=== PATIENT | female | born 1995 | race Caucasian/White ===

== ENCOUNTER 2018-09-30 16:37 | Observation (INO) ==
[2018-09-30 17:30] LABS: Hematocrit 31.7 % (37.0-47.0); Mean Cell Volume 87.8 fl (78-100); Mean Corpuscular Hemoglobin 30.5 pg (27-31); Mean Corpuscular Hgb Conc 34.7 g/dl (32-36); Mean Platelet Volume 10.9 fl (8-12.5); Neutrophil # 11.9 K/mm3 (1.3-6.0); Neutrophil % 81.7 % (42-75.0); Platelet Count 227 K/mm3 (150-450); Red Blood Count 3.61 M/mm3 (4.2-5.4); Red Cell Distribution Width 13.5 % (11.5-14.0); White Blood Count 14.6 K/mm3 (4.0-10.5)
[2018-09-30 17:45] LABS: Albumin * 2.5 gm/dl (3.4-5.0); Anion Gap 12.2 mmol/L (6.8-13.8); BUN/Creatinine Ratio 5.6 (9.0-21.6); Bilirubin, Total 0.2 mg/dL (0.0-1.1); Calcium * 8.1 mg/dL (7.9-10.9); Carbon Dioxide 24.7 mmol/L (24-32.6); Potassium 2.9 mmol/L (3.4-4.6); Total Protein 5.7 gm/dL (6.2-8.2)
[2018-09-30 18:18] LABS: Cocaine Ur Negative (NEGATIVE); Urine Barbiturate Negative (NEGATIVE); Urine Benzodiazepines Negative (NEGATIVE); Urine Opiates Negative (NEGATIVE); Urine PCP Negative (NEGATIVE); Urine THC Negative (NEGATIVE)
[2018-10-01] MEDS: hydrOXYzine PAMOATE 25 MG CAPSULE PO PRN ×3 (11:48→20:40)
--- NOTE | 2018-10-01 12:31 | PN ---
Subjective - Date and Time Seen Date: 10/01/18 Time: 12:28 Subjective Narrative: Patient denies headache, visual changes, or epigastric pain. Admits to good movement and no contractions. Objective - Review of Systems Generalized/Overall Review: Reports: No Symptoms Reported EENTM: Reports: No Symptoms Reported Respiratory: Reports: No Symptoms Reported Cardiac: Reports: No Symptoms Reported Abdominal: Reports: No Symptoms Reported Genitourinary Symptoms: Reports: No Symptoms Reported Musculoskeletal Complaints: Reports: No Symptoms Reported Neurological: Reports: Anxiety Skin: Reports: No Symptoms Reported Endocrine: Reports: No Symptoms Reported - Vitals Vitals: Last Vital Signs Temp 37.1 C 10/01/18 11:20 Pulse 94 10/01/18 11:20 Resp 20 10/01/18 11:20 BP 147/80 H 10/01/18 11:20 Pulse Ox 97 10/01/18 11:20 - Abnormal Lab Findings Abnormal Lab Findings: Abnormal Lab Results 09/30/18 09/30/18 Range/Units 17:20 17:25 WBC 14.6 H (4.0-10.5) K/mm3 RBC 3.61 L (4.2-5.4) M/mm3 Hgb 11.0 L (12.5-16.0) gm/dL Hct 31.7 L (37.0-47.0) % Immature Gran % (Auto) 1.10 H (0.001-0.429) % Immature Gran # (Auto) 0.16 H (0.000-0.0310) K/mm3 Neutrophils % 81.7 H (42-75.0) % Lymphocytes % 12.5 L (20-51) % Neutrophils # 11.9 H (1.3-6.0) K/mm3 Potassium 2.9 L (3.4-4.6) mmol/L Est GFR (Non-Af Amer) 151 H (60-130) mL/min BUN/Creatinine Ratio 5.6 L (9.0-21.6) ALT 16 L (19-67) U/L Alkaline Phosphatase 173 H (50-170) U/L Total Protein 5.7 L (6.2-8.2) gm/dL Albumin 2.5 L (3.4-5.0) gm/dl - Exam Exam Narrative: NST reactive. Constitutional: Present: Alert, Oriented x3, Cooperative, No distress ENT Exam: Present: hearing grossly normal Respiratory: Present: no respiratory distress Cardiovascular/Chest: Present: regular rate, rhythm Abdomen: Present: soft, nontender, other - gravid Extremity: Present: non-tender, no pedal edema, no calf tenderness Skin Exam: Present: normal color, warm/dry, no cyanosis Neurologic: Present: alert, normal mood/affect, oriented x 3, other - DTR 1/4 b/l, no clonus Appearance: Present: appropriate appearance, appropriate insight Eye contact: Present: cooperative, good eye contact, normal speech Thoughts: Present: normal thought pattern Assessment/Plan - Problems/Diagnosis (1) Preeclampsia Problem: Acute Qualifiers: Trimester: third trimester Qualified Code(s): O14.93 - Unspecified pre- eclampsia, third trimester Narrative: No signs or symptoms of severe features since admission to hospital. We'll continue to monitor blood pressures and patient's condition throughout the day. Possible discharge to home with frequent office visits versus continuing hospitalization until term.
--- NOTE | 2018-10-01 16:07 | HP ---
Chief Complaint - Chief Complaint Date of Service: 10/01/18 Time of Service: 15:22 - late note, seen last pm Chief Complaint: preeclampsia with severe features in office History of Present Illness: 23 yo at 35 3/7 wks on day of admission last pm from office for preeclampsia with severe features by blood pressure alone. Patient came to office for 2nd betamethasone shot and had blood pressures of 157/91, 164/93, and 179/92. She did not complain of headache, visual changes, or epigastric pain (though she has had all the above intermittently throughout the week). She was sent to L&D for further evaluation/tx with possible transfer to [facility]. Upon arrival her blood pressures were only elevated in the mild range and most WNL. She was therefore admitted for 23h observation. She received a course of steroids on 09/29 and 09/30. This complicated by anemia, subchorionic hemorrhage (1st trimester), anxiety, migraines, THC use, smoker, and preeclampsia (dx'd 09/28/18). 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 Onset Date: 2014 headaches, migraines, no treatment Anxiety Surgical History: Surgical History (Last Reviewed 10/01/18 @ 15:58 by Saúl Mansfield DO) History of myringotomy x3 History of arthroplasty of right knee Onset Date: 2012 genetic condition Family History: Family History (Last Reviewed 10/01/18 @ 15:58 by Saúl Mansfield DO) Aunt Cancer breast cancer and ovarian cancer Father S/P CABG x 3 Grandfather Heart disease Grandfather Cancer Colon Grandmother Parkinsons disease Diabetes Grandmother Heart disease Mother COPD (chronic obstructive pulmonary disease) Myocardial infarction Arthritis H/O spontaneous , not currently x8 Social History: Preferred Language Iranian Do you have any orthodox or No cultural preference? (Last Updated 09/29/18 @ 17:53 by Saúl Mansfield DO) No Social History Section defined Review Of Systems (GEN) - Review of Systems Generalized/Overall Review: Present: No Symptoms Reported EENTM: Present: No Symptoms Reported Respiratory: Present: No Symptoms Reported Cardiac: Present: No Symptoms Reported Abdominal: Present: No Symptoms Reported Genitourinary: Present: No Symptoms Reported Musculoskeletal: Present: No Symptoms Reported Neurological: Present: Anxiety Skin: Present: No Symptoms Reported Endocrine: Present: No Symptoms Reported Immunizations: IMMUNIZATION HX Immunizations Up to Date Yes History of Influenza Vaccine No Hx Pneumococcal Vaccination No Allergies/Adverse Reactions: Allergies Allergy/AdvReac Type Severity Reaction Status Date / Time latex Allergy Itching, Verified 09/30/18 16:58 burning tramadol Allergy Itching, Verified 09/30/18 16:58 nausea, vomiting Home Medications: HOME MEDICATIONS Vits96/Iron Fum/Folic [ S] 1 tab PO DAILY 09/30/18 [Last Taken 09/29/18 11:00] hydrALAZINE HCL [Hydralazine HCl] 25 mg PO Q4H PRN 09/30/18 [Last Taken Unknown] Exam - Exam Vital Signs: Vital Signs - Last Taken Temp 37.1 C 10/01/18 11:20 Pulse 94 10/01/18 11:20 Resp 20 10/01/18 11:20 BP 147/80 H 10/01/18 11:20 Pulse Ox 97 10/01/18 11:20 Constitutional: Present: Alert, Oriented x3, Cooperative, No distress ENT Exam: Present: hearing grossly normal Neck: Absent: thyromegaly Back Exam: Present: no CVA tenderness Breasts: Present: Exam deferred Respiratory: Present: lungs clear, no respiratory distress Cardiovascular/Chest: Present: normal peripheral pulses, regular rate, rhythm, no edema Abdomen: Present: soft, nontender, no rebound tenderness, other - gravid /Rectal: Present: Exam deferred Extremity: Present: no pedal edema, no calf tenderness Skin Exam: Present: normal color, warm/dry, no cyanosis Lymphatic: Present: no adenopathy Neurologic: Present: normal mood/affect, oriented x 3 Appearance: Present: appropriate appearance, appropriate insight Eye contact: Present: cooperative, good eye contact Thoughts: Present: normal mood /affect Diagnostic Studies: Abnormal Lab Results 09/30/18 09/30/18 Range/Units 17:20 17:25 WBC 14.6 H (4.0-10.5) K/mm3 RBC 3.61 L (4.2-5.4) M/mm3 Hgb 11.0 L (12.5-16.0) gm/dL Hct 31.7 L (37.0-47.0) % Immature Gran % (Auto) 1.10 H (0.001-0.429) % Immature Gran # (Auto) 0.16 H (0.000-0.0310) K/mm3 Neutrophils % 81.7 H (42-75.0) % Lymphocytes % 12.5 L (20-51) % Neutrophils # 11.9 H (1.3-6.0) K/mm3 Potassium 2.9 L (3.4-4.6) mmol/L Est GFR (Non-Af Amer) 151 H (60-130) mL/min BUN/Creatinine Ratio 5.6 L (9.0-21.6) ALT 16 L (19-67) U/L Alkaline Phosphatase 173 H (50-170) U/L Total Protein 5.7 L (6.2-8.2) gm/dL Albumin 2.5 L (3.4-5.0) gm/dl Laboratory Results WBC 14.6 K/mm3 (4.0-10.5) H 09/30/18 17:25 RBC 3.61 M/mm3 (4.2-5.4) L 09/30/18 17:25 Hgb 11.0 gm/dL (12.5-16.0) L 09/30/18 17:25 Hct 31.7 % (37.0-47.0) L 09/30/18 17:25 MCV 87.8 fl (78-100) 09/30/18 17:25 MCH 30.5 pg (27-31) 09/30/18 17:25 MCHC 34.7 g/dl (32-36) 09/30/18 17:25 RDW 13.5 % (11.5-14.0) 09/30/18 17:25 Plt Count 227 K/mm3 (150-450) 09/30/18 17:25 MPV 10.9 fl (8-12.5) 09/30/18 17:25 Immature Gran % (Auto) 1.10 % (0.001-0.429) H 09/30/18 17:25 Immature Gran # (Auto) 0.16 K/mm3 (0.000-0.0310) H 09/30/18 17:25 Neutrophils % 81.7 % (42-75.0) H 09/30/18 17:25 Lymphocytes % 12.5 % (20-51) L 09/30/18 17:25 Monocytes % 4.1 % (0.0-9) 09/30/18 17:25 Eosinophils % 0.5 % (0.0-3.0) 09/30/18 17:25 Basophils % 0.1 % (0.0-1.0) 09/30/18 17:25 Nucleated RBC % 0.0 k/mm3 (0-1) 09/30/18 17:25 Neutrophils # 11.9 K/mm3 (1.3-6.0) H 09/30/18 17:25 Lymphocytes # 1.83 k/mm3 (1.5-3.5) 09/30/18 17:25 Monocytes # 0.6 k/mm3 (0.0-1.0) 09/30/18 17:25 Eosinophils # 0.1 k/mm3 (0.0-0.7) 09/30/18 17:25 Absolute Basophils 0.0 k/mm3 (0.0-0.1) 09/30/18 17:25 Sodium 138 mmol/L (132-142) 09/30/18 17:20 Plasma Sodium 138 mmol/L (130-142) 09/30/18 17:20 Potassium 2.9 mmol/L (3.4-4.6) L 09/30/18 17:20 Chloride 104 mmol/L (97-106) 09/30/18 17:20 Carbon Dioxide 24.7 mmol/L (24-32.6) 09/30/18 17:20 Anion Gap 12.2 mmol/L (6.8-13.8) 09/30/18 17:20 BUN 3 mg/dL (3-23) 09/30/18 17:20 Creatinine 0.54 mg/dL (0.4-1.4) 09/30/18 17:20 Est GFR (Non-Af Amer) 151 mL/min (60-130) H 09/30/18 17:20 BUN/Creatinine Ratio 5.6 (9.0-21.6) L 09/30/18 17:20 Random Glucose 104 mg/dL (70-110) 09/30/18 17:20 Calcium 8.1 mg/dL (7.9-10.9) 09/30/18 17:20 Calcium Adj for Albumin 9.0 mg/dL (8.4-10.2) 09/30/18 17:20 Total Bilirubin 0.2 mg/dL (0.0-1.1) 09/30/18 17:20 AST 14 U/L (0-48) 09/30/18 17:20 ALT 16 U/L (19-67) L 09/30/18 17:20 Alkaline Phosphatase 173 U/L (50-170) H 09/30/18 17:20 Total Protein 5.7 gm/dL (6.2-8.2) L 09/30/18 17:20 Albumin 2.5 gm/dl (3.4-5.0) L 09/30/18 17:20 Urine Opiates Screen Negative (NEGATIVE) 09/30/18 17:54 Barbiturate Screen Negative (NEGATIVE) 09/30/18 17:54 Ur Phencyclidine Scrn Negative (NEGATIVE) 09/30/18 17:54 Urine Amphetamine Negative (NEGATIVE) 09/30/18 17:54 U Benzodiazepines Scrn Negative (NEGATIVE) 09/30/18 17:54 Urine Cocaine Screen Negative (NEGATIVE) 09/30/18 17:54 Urine Marijuana (THC) Negative (NEGATIVE) 09/30/18 17:54 Assessment/Plan - Assessment/Plan (1) Preeclampsia Assessment: Admit for prolonged monitoring for return of severe features. If remains stable throughout today and tonight, will consider discharge to home with close outpatient follow-up. Plan on delivery at 37wks unless severe features develop before then. 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
[2018-10-02] MEDS: hydrOXYzine PAMOATE 25 MG CAPSULE PO PRN ×2 (02:38→07:46)
[2018-10-02 07:12] VITALS: BP 134/65
--- NOTE | 2018-10-02 09:03 | PN ---
Subjective - Date and Time Seen Date: 10/02/18 Time: 08:57 Subjective Narrative: Patient denies headache, visual changes, or epigastric pain. Her anxiety has been controlled with Vistaril PRN. Objective - Review of Systems Generalized/Overall Review: Reports: No Symptoms Reported EENTM: Reports: No Symptoms Reported Respiratory: Reports: No Symptoms Reported Cardiac: Reports: No Symptoms Reported Abdominal: Reports: No Symptoms Reported Genitourinary Symptoms: Reports: No Symptoms Reported Musculoskeletal Complaints: Reports: No Symptoms Reported Neurological: Reports: Anxiety - controlled Skin: Reports: No Symptoms Reported Endocrine: Reports: No Symptoms Reported - Vitals Vitals: Last Vital Signs Temp 37.1 C 10/02/18 06:45 Pulse 77 10/02/18 06:45 Resp 18 10/02/18 06:45 BP 134/65 10/02/18 06:45 Pulse Ox 98 10/02/18 06:45 NST reactive. - Exam Constitutional: Present: Alert, Oriented x3, Cooperative, No distress ENT Exam: Present: hearing grossly normal Breasts: Present: Exam deferred Respiratory: Present: lungs clear, no respiratory distress Cardiovascular/Chest: Present: normal peripheral pulses, regular rate, rhythm, no edema Abdomen: Present: soft, nontender, no rebound tenderness, other - gravid /Rectal: Present: Exam deferred Extremity: Present: non-tender, no pedal edema, no calf tenderness Skin Exam: Present: normal color, warm/dry, no cyanosis Neurologic: Present: alert, normal mood/affect, oriented x 3, other - DTR 1/4, no clonus Appearance: Present: appropriate appearance, appropriate insight Eye contact: Present: cooperative, good eye contact Thoughts: Present: normal thought pattern Assessment/Plan - Problems/Diagnosis (1) Preeclampsia Problem: Acute Qualifiers: Trimester: third trimester Qualified Code(s): O14.93 - Unspecified pre- eclampsia, third trimester Narrative: Reluctantly discharging patient on with close outpatient observation. Patient instructed to call for any signs or symptoms of severe preeclampsia. Patient to remain on bed rest and not drive. Patient has appointment for NST, f/u growth ultrasound, and lab work on Saturday. 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
== END 2018-10-02 09:15 | disposition home or self-care (01) | DRG 833 ==
LOC: INTOOBSV 16:37 → OB 16:37
PROVIDERS: ADMIT Obstetrics & Gynecology; ATTEND Obstetrics & Gynecology
CPT/HCPCS: 36415; 59025; 80053; 80307; 85025; G0378; G0479

== ENCOUNTER 2018-10-02 14:34 | Observation (INO) ==
[2018-10-02] MEDS ORDERED: RINGER'S SOLUTION,LACTATED 1,000 ML IV PRN ×2 (15:00→15:02)
[2018-10-02 15:25] LABS: Hematocrit 31.9 % (37.0-47.0); Hemoglobin 11.2 gm/dL (12.5-16.0); Mean Cell Volume 87.6 fl (78-100); Mean Corpuscular Hemoglobin 30.8 pg (27-31); Mean Corpuscular Hgb Conc 35.1 g/dl (32-36); Mean Platelet Volume 11.1 fl (8-12.5); Neutrophil % 72.8 % (42-75.0); Platelet Count 243 K/mm3 (150-450); Red Blood Count 3.64 M/mm3 (4.2-5.4); Red Cell Distribution Width 13.5 % (11.5-14.0); White Blood Count 15.2 K/mm3 (4.0-10.5)
[2018-10-02 15:32] LABS: Albumin * 2.4 gm/dl (3.4-5.0); Anion Gap 13.2 mmol/L (6.8-13.8); BUN/Creatinine Ratio 7.4 (9.0-21.6); Bilirubin, Total 0.3 mg/dL (0.0-1.1); Ca. Corrected For Albumin 9.1 mg/dL (8.4-10.2); Calcium * 8.1 mg/dL (7.9-10.9); Carbon Dioxide 24.8 mmol/L (24-32.6); Total Protein 5.6 gm/dL (6.2-8.2)
[2018-10-02] MEDS ORDERED: CALCIUM GLUCONATE 4.65 MEQ/10 ML VIAL IV PRN (15:38)
[2018-10-02] MEDS ORDERED: MAGNESIUM SULFATE IN WATER 50 ML, MAGNESIUM SULFATE IN WATER 50 ML IV ONE ×2 (15:38)
[2018-10-02] MEDS ORDERED: LABETALOL HCL 5 MG/ML VIAL IV ONE ×2 (15:41→15:51)
[2018-10-02] MEDS ORDERED: LABETALOL HCL 100 MG TABLET PO SCH (15:41)
[2018-10-02] MEDS ORDERED: MAGNESIUM SULFATE IN WATER 1,000 ML IV SCH (15:45)
[2018-10-02 15:52] VITALS: BP 189/86
--- NOTE | 2018-10-02 16:30 | HP ---
Chief Complaint - Chief Complaint Date of Service: 10/02/18 Time of Service: 16:13 Chief Complaint: Contractions History of Present Illness: 23 yo at 35 5/7 wks diagnosed with preeclampsia and recently discharged this am presents to office this afternoon complaining of contracitons of increased intensity that started around 1230 and become severe around 1530. She complains of headache since onset of contractions, but denies epigastric pain, visual changes, or increased swelling. 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 Onset Date: 2014 headaches, migraines, no treatment Anxiety Surgical History: Surgical History (Last Reviewed 10/02/18 @ 16:16 by Saúl Mansfield DO) History of myringotomy x3 History of arthroplasty of right knee Onset Date: 2012 genetic condition Family History: Family History (Last Reviewed 10/02/18 @ 16:17 by Saúl Mansfield DO) Aunt Cancer breast cancer and ovarian cancer Father S/P CABG x 3 Grandfather Heart disease Grandfather Cancer Colon Grandmother Parkinsons disease Diabetes Grandmother Heart disease Mother COPD (chronic obstructive pulmonary disease) Myocardial infarction Arthritis H/O spontaneous , not currently x8 Social History: Preferred Language Kyrgyz (Last Updated 09/29/18 @ 17:53 by Saúl Mansfield DO) No Social History Section defined Review Of Systems (GEN) - Review of Systems Generalized/Overall Review: Present: No Symptoms Reported EENTM: Present: No Symptoms Reported Respiratory: Present: No Symptoms Reported Cardiac: Present: No Symptoms Reported Abdominal: Present: Other - contractions Genitourinary: Present: No Symptoms Reported Musculoskeletal: Present: No Symptoms Reported Neurological: Present: Headache, Anxiety Skin: Present: No Symptoms Reported Endocrine: Present: No Symptoms Reported Immunizations: IMMUNIZATION HX Immunizations Up to Date Yes History of Influenza Vaccine No Hx Pneumococcal Vaccination No Allergies/Adverse Reactions: Allergies Allergy/AdvReac Type Severity Reaction Status Date / Time latex Allergy Itching, Verified 10/02/18 14:44 burning tramadol Allergy Itching, Verified 10/02/18 14:44 nausea, vomiting Home Medications: HOME MEDICATIONS Vits96/Iron Fum/Folic [ S] 1 tab PO DAILY 09/30/18 [Last Taken 09/29/18 11:00] hydrALAZINE HCL [Hydralazine HCl] 25 mg PO Q4H PRN 09/30/18 [Last Taken Unknown] Escitalopram Oxalate [Lexapro] 10 mg PO DAILY #30 tab 10/02/18 [Last Taken Unknown] Ferrous Sulfate 325 mg PO DAILY #60 tablet 10/02/18 [Last Taken Unknown] Exam - Exam Vital Signs: Vital Signs - Last Taken Temp 37.3 C 10/02/18 15:00 Pulse 92 10/02/18 15:53 Resp 20 10/02/18 15:00 BP 189/86 H 10/02/18 15:53 Pulse Ox 98 10/02/18 15:00 Constitutional: Present: Alert, Oriented x3, Cooperative, Mild distress ENT Exam: Present: hearing grossly normal Cardiovascular/Chest: Present: normal peripheral pulses, regular rate, rhythm Abdomen: Present: soft, nontender, no rebound tenderness, other - gravid. Absent: guarding Extremity: Present: non-tender, no pedal edema, no calf tenderness Skin Exam: Present: normal color, warm/dry, no cyanosis Lymphatic: Present: no adenopathy Neurologic: Present: other - anxious, agitated Appearance: Present: appropriate appearance, appropriate insight Eye contact: Present: cooperative, good eye contact Thoughts: Present: other - confused Diagnostic Studies: Abnormal Lab Results 10/02/18 10/02/18 Range/Units 15:00 15:15 WBC 15.2 H (4.0-10.5) K/mm3 RBC 3.64 L (4.2-5.4) M/mm3 Hgb 11.2 L (12.5-16.0) gm/dL Hct 31.9 L (37.0-47.0) % Immature Gran % (Auto) 3.80 H (0.001-0.429) % Immature Gran # (Auto) 0.57 H (0.000-0.0310) K/mm3 Lymphocytes % 16.9 L (20-51) % Neutrophils # 11.0 H (1.3-6.0) K/mm3 Sodium 143 H (132-142) mmol/L Plasma Sodium 143 H (130-142) mmol/L Potassium 3.0 L (3.4-4.6) mmol/L Chloride 108 H (97-106) mmol/L Est GFR (Non-Af Amer) 151 H (60-130) mL/min BUN/Creatinine Ratio 7.4 L (9.0-21.6) AST 79 H (0-48) U/L Total Protein 5.6 L (6.2-8.2) gm/dL Albumin 2.4 L (3.4-5.0) gm/dl Laboratory Results WBC 15.2 K/mm3 (4.0-10.5) H 10/02/18 15:15 RBC 3.64 M/mm3 (4.2-5.4) L 10/02/18 15:15 Hgb 11.2 gm/dL (12.5-16.0) L 10/02/18 15:15 Hct 31.9 % (37.0-47.0) L 10/02/18 15:15 MCV 87.6 fl (78-100) 10/02/18 15:15 MCH 30.8 pg (27-31) 10/02/18 15:15 MCHC 35.1 g/dl (32-36) 10/02/18 15:15 RDW 13.5 % (11.5-14.0) 10/02/18 15:15 Plt Count 243 K/mm3 (150-450) 10/02/18 15:15 MPV 11.1 fl (8-12.5) 10/02/18 15:15 Immature Gran % (Auto) 3.80 % (0.001-0.429) H 10/02/18 15:15 Immature Gran # (Auto) 0.57 K/mm3 (0.000-0.0310) H 10/02/18 15:15 Neutrophils % 72.8 % (42-75.0) 10/02/18 15:15 Lymphocytes % 16.9 % (20-51) L 10/02/18 15:15 Monocytes % 5.9 % (0.0-9) 10/02/18 15:15 Eosinophils % 0.3 % (0.0-3.0) 10/02/18 15:15 Basophils % 0.3 % (0.0-1.0) 10/02/18 15:15 Nucleated RBC % 0.0 k/mm3 (0-1) 10/02/18 15:15 Neutrophils # 11.0 K/mm3 (1.3-6.0) H 10/02/18 15:15 Lymphocytes # 2.57 k/mm3 (1.5-3.5) 10/02/18 15:15 Monocytes # 0.9 k/mm3 (0.0-1.0) 10/02/18 15:15 Eosinophils # 0.0 k/mm3 (0.0-0.7) 10/02/18 15:15 Absolute Basophils 0.1 k/mm3 (0.0-0.1) 10/02/18 15:15 Sodium 143 mmol/L (132-142) H 10/02/18 15:00 Plasma Sodium 143 mmol/L (130-142) H 10/02/18 15:00 Potassium 3.0 mmol/L (3.4-4.6) L 10/02/18 15:00 Chloride 108 mmol/L (97-106) H 10/02/18 15:00 Carbon Dioxide 24.8 mmol/L (24-32.6) 10/02/18 15:00 Anion Gap 13.2 mmol/L (6.8-13.8) 10/02/18 15:00 BUN 4 mg/dL (3-23) 10/02/18 15:00 Creatinine 0.54 mg/dL (0.4-1.4) 10/02/18 15:00 Est GFR (Non-Af Amer) 151 mL/min (60-130) H 10/02/18 15:00 BUN/Creatinine Ratio 7.4 (9.0-21.6) L 10/02/18 15:00 Random Glucose 89 mg/dL (70-110) 10/02/18 15:00 Calcium 8.1 mg/dL (7.9-10.9) 10/02/18 15:00 Calcium Adj for Albumin 9.1 mg/dL (8.4-10.2) 10/02/18 15:00 Total Bilirubin 0.3 mg/dL (0.0-1.1) 10/02/18 15:00 AST 79 U/L (0-48) H 10/02/18 15:00 ALT 41 U/L (19-67) 10/02/18 15:00 Alkaline Phosphatase 159 U/L (50-170) 10/02/18 15:00 Total Protein 5.6 gm/dL (6.2-8.2) L 10/02/18 15:00 Albumin 2.4 gm/dl (3.4-5.0) L 10/02/18 15:00 Assessment/Plan - Assessment/Plan (1) Anxiety Problem: Chronic (2) Anemia affecting in third trimester Problem: Acute (3) Smoker Problem: Resolved (4) 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 Admit, start on magnesium sulfate, give labetalol for elevated BPs and transfer to [facility]. Problem: Acute Qualifiers: Trimester: third trimester (6) labor in third trimester Problem: Acute Qualifiers: labor delivery status: without delivery Qualified Code(s): O60.03 - labor without delivery, third trimester
== END 2018-10-02 17:11 | disposition short-term general hospital (02) ==
LOC: OBCLINIC 14:34 → INTOOBSV 15:54 → OB 15:54
PROVIDERS: ADMIT Obstetrics & Gynecology; ATTEND Obstetrics & Gynecology
DX: O60.03 Preterm labor without delivery, third trimester; D64.9 Anemia, unspecified; Z3A.36 36 weeks gestation of pregnancy; F41.9 Anxiety disorder, unspecified; O99.013 Anemia complicating pregnancy, third trimester; O14.13 Severe pre-eclampsia, third trimester
CPT/HCPCS: 36415; 59025; 80053; 85025; 96374; G0378

== ENCOUNTER 2020-04-12 10:55 | Observation (INO) ==
[2020-04-12] MEDS ORDERED: DEXTROSE 5%-LACTATED RINGERS 1,000 ML IV PRN (11:26)
[2020-04-12 11:29] LABS: Urine Bilirubin Negative (NEGATIVE); Urine Blood 25 /ul (NEGATIVE); Urine Ketone Negative (NEGATIVE); Urine Nitrite Negative (NEGATIVE); Urine Protein Negative (NEGATIVE); Urine Specific Gravity 1.015 SP.GR. (1.005-1.010); Urine Urobilinogen Normal (NORMAL); Urine pH 7.5 pH (5.0-7.0)
[2020-04-12] MEDS: ONDANSETRON HCL/PF 2 MG/ML VIAL IV PRN ×2 (11:30→18:25)
[2020-04-12 11:44] LABS: Urine Appearance Clear (CLEAR); Urine Color Yellow
[2020-04-12 11:45] LABS: Urine Amorphous Sediment Few - 1+ (NONE-FEW); Urine Bacteria 1+; Urine WBC 0-5 /hpf (0-5)
[2020-04-12 11:46] LABS: Urine Mucus TRACE
[2020-04-12] MEDS: HYDROmorphone HCL 1 MG/ML DISP.SYRIN IV PRN ×2 (12:09→15:13)
[2020-04-12] MEDS ORDERED: HYDROmorphone HCL 1 MG/ML DISP.SYRIN IV PRN ×2 (12:28→17:02)
[2020-04-12] MEDS ORDERED: RINGER'S SOLUTION,LACTATED 1,000 ML IV PRN ×2 (12:35→16:54)
[2020-04-12] MEDS: TAMSULOSIN HCL 0.4 MG CAP.SR.24H PO SCH (13:02)
[2020-04-12] MEDS ORDERED: oxyCODONE HCL/ACETAMINOPHEN 1 TAB TABLET PO PRN ×3 (13:28→17:02)
[2020-04-12] MEDS ORDERED: hydrOXYzine PAMOATE 50 MG CAPSULE PO ONE (16:50)
[2020-04-12] MEDS ORDERED: oxyCODONE HCL/ACETAMINOPHEN 1 TAB TABLET PO ONE (16:50)
[2020-04-12] MEDS ORDERED: hydrOXYzine PAMOATE 25 MG CAPSULE PO ONE (17:00)
[2020-04-12] MEDS ORDERED: hydrOXYzine PAMOATE 25 MG CAPSULE PO PRN (17:05)
--- NOTE | 2020-04-12 17:47 | HP ---
Chief Complaint - Chief Complaint Date of Service: 04/12/20 Time of Service: 17:28 Chief Complaint: lower back/abd pain History of Present Illness: 25 yo at 30 2/7 weeks presents to L&D complaining of severe left sided back/abdominal pain that started around 0900 this am. Pain is described as sharp/aching 9/10. Associated nausea started apprdoximately 30 min after pain began. Patient admits to increased vaginal/rectal pressure. Denies vaginal bleeding/discharge, fever, chills, or decreased movement. This pregancy complicated by anxiety, anemia, migraines, smoker, h/o severe preeclampsia with iatrogenic PTD at 35 wks, threatened PTL, and now kidney stones. Rh positive Rubella immune GBS cx pending Medical History (Last Reviewed 04/12/20 @ 17:35 by Saúl Mansfield DO) Anemia (Acute) Onset Date: 03/10/20 w/ Threatened spontaneous (Acute) History of delivery (Chronic) iatrogenic - 35wks, severe preeclampsia. History of pre-eclampsia (Chronic) Anemia Onset Date: 07/31/18 w/ Enlarged pituitary gland Onset Date: 2014 headaches, migraines, no treatment Migraines Onset Date: Unknown Anxiety History of delivery Onset Date: 10/03/18 @ 35 wks d/t pre-eclampsia w/severe features. [facility] hypertension (Resolved) Preeclampsia (Resolved) Onset Date: ~09/2018 w/severe features. Transfer to [facility]. Smoker (Resolved) counseled. Surgical History: Surgical History (Last Reviewed 04/12/20 @ 17:35 by Saúl Mansfield DO) History of myringotomy x3 History of arthroplasty of right knee Onset Date: 2012 genetic condition [place] teeth extracted Onset Date: ~06/2019 Family History: Family History (Last Reviewed 04/12/20 @ 17:35 by Saúl Mansfield DO) Aunt Cancer breast cancer and ovarian cancer Father S/P CABG x 3 Grandfather Heart disease Grandfather Cancer Colon Grandmother Parkinsons disease Diabetes Grandmother Heart disease Mother COPD (chronic obstructive pulmonary disease) Myocardial infarction Arthritis H/O spontaneous , not currently x8 Social History: (Last Reviewed 04/12/20 @ 17:35 by Saúl Mansfield DO) Social History: adopted: No group home: No Marital status: Single household members: significant other, children number of children: 1 current occupational status: unemployed current occupational exposures/hazards: No Highest education level completed: high school graduate Service: No Tobacco: Smoking Status: Former smoker tobacco type: cigarettes Smoking cigarettes per day: 10 Alcohol: alcohol intake: former Substance Use: substance use type: marijuana, former substance user Dietary Habits: caffeine: Yes caffeine comment: 3 per week Type: carbonated beverages, other Pets: pets and animals: cat(s) Exercise: frequency: does not exercise Review Of Systems (GEN) - Review of Systems Generalized/Overall Review: Present: No Symptoms Reported EENTM: Present: No Symptoms Reported Respiratory: Present: No Symptoms Reported Cardiac: Present: No Symptoms Reported Abdominal: Present: Nausea, Abdominal Pain Genitourinary: Present: Other - urethral stinging pain Musculoskeletal: Present: Back Pain Neurological: Present: Headache, Anxiety Skin: Present: No Symptoms Reported Endocrine: Present: No Symptoms Reported Immunizations: IMMUNIZATION HX Immunizations Up to Date Yes History of Influenza Vaccine No Hx Pneumococcal Vaccination No Allergies/Adverse Reactions: Allergies Allergy/AdvReac Type Severity Reaction Status Date / Time latex Allergy Itching, Verified 04/12/20 11:16 burning tramadol Allergy Itching, Verified 04/12/20 11:16 nausea, vomiting Home Medications: HOME MEDICATIONS Vits96/Iron Fum/Folic [ S] 1 tab PO DAILY 09/30/18 [Last Taken 09/29/18 11:00] acetaminophen 500 mg tablet 500 mg PO Q6H PRN 11/19/19 [Last Taken Unknown] aspirin 81 mg tablet,delayed release 81 mg PO DAILY 12/17/19 [Last Taken Unknown] ferrous sulfate 325 mg (65 mg iron) tablet,delayed release 325 mg PO DAILY #30 tab 03/10/20 [Last Taken Unknown] breast pump See Rx Instructions .ROUTE .MEDSUPPLY #1 ea 04/07/20 [Last Taken Unknown] hydroxyzine HCl 50 mg tablet 50 mg PO Q6H PRN #30 tab 04/07/20 [Last Taken Unknown] Exam - Exam Vital Signs: Vital Signs - Last Taken Temp 36.4 C 04/12/20 12:50 Pulse 88 04/12/20 12:50 Resp 20 04/12/20 12:50 BP 129/68 04/12/20 12:50 Pulse Ox 96 04/12/20 12:50 Constitutional: Present: Alert, Oriented x3, Severe distress - upon presentation to L&D ENT Exam: Present: hearing grossly normal Neck: Absent: thyromegaly Back Exam: Present: CVA tenderness (L) Breasts: Present: Exam deferred Respiratory: Present: lungs clear, no respiratory distress Cardiovascular/Chest: Present: regular rate, rhythm, no edema Abdomen: Present: soft, nontender, no rebound tenderness, other - gravid /Rectal: Present: Other - Cervix - /25/-2 Extremity: Present: no pedal edema, no calf tenderness Skin Exam: Present: normal color, warm/dry, no cyanosis Neurologic: Present: alert, oriented x 3, other - anxious and appears in severe pain Appearance: Present: appropriate appearance, appropriate insight Eye contact: Present: cooperative, good eye contact Thoughts: Present: normal thought pattern Diagnostic Studies: Abnormal Lab Results 04/12/20 Range/Units 11:00 Urine Blood 25 H (NEGATIVE) /ul Urine RBC 5-10 H (0-5) /hpf Ur Epithelial Cells 5-10 H (0-5) /hpf Urine Bacteria 1+ H (NONE) Laboratory Results Urine Color Yellow 04/12/20 11:00 Urine Appearance Clear (CLEAR) 04/12/20 11:00 Urine pH 7.5 pH (5.0-7.0) 04/12/20 11:00 Ur Specific [place] 1.015 SP.GR. (1.005-1.010) 04/12/20 11:00 Urine Protein Negative mg/dL (NEGATIVE) 04/12/20 11:00 Urine Glucose (UA) Negative mg/dL (NEGATIVE) 04/12/20 11:00 Urine Ketones Negative mg/dL (NEGATIVE) 04/12/20 11:00 Urine Blood 25 /ul (NEGATIVE) H 04/12/20 11:00 Urine Nitrate Negative (NEGATIVE) 04/12/20 11:00 Urine Bilirubin Negative mg/dl (NEGATIVE) 04/12/20 11:00 Urine Urobilinogen Normal EU/dl (NORMAL) 04/12/20 11:00 Ur Leukocyte Esterase Negative /ul (NEGATIVE) 04/12/20 11:00 Urine RBC 5-10 /hpf (0-5) H 04/12/20 11:00 Urine WBC 0-5 /hpf (0-5) 04/12/20 11:00 Ur Epithelial Cells 5-10 /hpf (0-5) H 04/12/20 11:00 Amorphous Sediment Few - 1+ (NONE-FEW) 04/12/20 11:00 Urine Bacteria 1+ (NONE) H 04/12/20 11:00 Urine Mucus Trace (NONE) 04/12/20 11:00 Urine Culture Comments No culture indicated 04/12/20 11:00 Assessment/Plan - Assessment/Plan (1) Kidney stone complicating Assessment: Pain uncontrolled with narcotic use. Admit to get right combination of meds to control pain. Strain urine for stone. If no improvement in pain in am will get urology consult for possible stent placement. Problem: Acute Qualifiers: Trimester: third trimester Qualified Code(s): O26.833 - related renal disease, third trimester; N20.0 - Calculus of kidney (2) Uncontrolled pain Problem: Acute (3) Anxiety Problem: Chronic Non Stress Test - Status NST: 04/12/20 Reason for NST: threatened labor Monitor Mode: External Acceleration: Present Decelerations: None Variability: Moderate 6-25 bpm Baseline Heart Rate: 130 - Assessment NST Assessment: other - Kidney stone, threatened labor - Plan NST Plan: Admit to L&D
[2020-04-12] MEDS ORDERED: POLYETHYLENE GLYCOL 3350 17 GM PACKET PO SCH (18:00)
[2020-04-12] MEDS ORDERED: BISACODYL 5 MG TABLET.DR PO SCH (18:00)
[2020-04-12] MEDS ORDERED: DOCUSATE SODIUM 100 MG CAPSULE ONE (18:35)
[2020-04-12] MEDS: DOCUSATE SODIUM 100 MG CAPSULE PO SCH ×2 (18:39→22:34)
[2020-04-13] MEDS ORDERED: ACETAMINOPHEN 500 MG TABLET PO PRN (01:08)
[2020-04-13 07:00] VITALS: BP 103/60
[2020-04-13] MEDS: TAMSULOSIN HCL 0.4 MG CAP.SR.24H PO SCH (08:37)
--- NOTE | 2020-04-13 08:46 | DS ---
(1) Kidney stone complicating Problem: Resolved Qualifiers: Trimester: third trimester Qualified Code(s): O26.833 - related renal disease, third trimester; N20.0 - Calculus of kidney (2) Uncontrolled pain Problem: Resolved (3) Anxiety Problem: Inactive Date of Discharge:: 04/13/20 Hospital Course: Patient admitted to the hospital for control of pain due to kidney stone. She was started on IV narcotics and quickly switched to oral narcotics. She was also given IV fluids and Flomax. All urine was strained. She passed the stone in the middle of the night and her pain resolved. Antepartum testing of the baby was reassuring both upon admission during hospital stay and at the time of discharge. Procedures Performed: see notes below List Procedures: IV fluids, antiemetics, IV and PO narcotics, retroperitoneal ultrasound, nonstress test, continuous and tocodynamometer monitoring. Care Plan Goals: Remain pain free, avoid recurrence of kidney stones, and continue with care. Plan of Treatment: Increase water intake and avoid smoking, carbonated beverages, and calcium carbonate. Results and Findings: Lab Pending Results 04/12/20 11:00: Urine Color Yellow, Urine Appearance Clear, Urine pH 7.5, Ur Specific [place] 1.015, Urine Protein Negative, Urine Glucose (UA) Negative, Urine Ketones Negative, Urine Blood 25 H, Urine Nitrate Negative, Urine Bi lirubin Negative, Urine Urobilinogen Normal, Ur Leukocyte Esterase Negative, Urine RBC 5-10 H, Urine WBC 0-5, Ur Epithelial Cells 5-10 H, Amorphous Sediment Few - 1+, Urine Bacteria 1+ H, Urine Mucus Trace, Urine Culture Comments No culture indicated Discharge Location: Home Disposition: Home self-care Condition: Good Discharge Activity: Activity as tolerated Discharge Diet: General/regular food Complete Home Medications List: Complete Home Medication List: Vits96/Iron Fum/Folic [ S] 1 tab PO DAILY 09/30/18 acetaminophen 500 mg tablet 500 mg PO Q6H PRN 11/19/19 aspirin 81 mg tablet,delayed release 81 mg PO DAILY 12/17/19 ferrous sulfate 325 mg (65 mg iron) tablet,delayed release 325 mg PO DAILY #30 tab 03/10/20 breast pump See Rx Instructions .ROUTE .MEDSUPPLY #1 ea 04/07/20 hydroxyzine HCl 50 mg tablet 50 mg PO Q6H PRN #30 tab 04/07/20
--- NOTE | 2020-04-13 08:55 | PN ---
Subjective - Date and Time Seen Date: 04/13/20 Time: 07:45 Subjective Narrative: Patient feeling much better since passing the kidney stone. Denies pain, contractions, or decreased movement. Objective - Review of Systems Generalized/Overall Review: Reports: No Symptoms Reported EENTM: Reports: No Symptoms Reported Respiratory: Reports: No Symptoms Reported Cardiac: Reports: No Symptoms Reported Abdominal: Reports: No Symptoms Reported Genitourinary Symptoms: Reports: No Symptoms Reported Musculoskeletal Complaints: Reports: No Symptoms Reported Neurological: Reports: No Symptoms Reported Skin: Reports: No Symptoms Reported Endocrine: Reports: No Symptoms Reported - Vitals Vitals: Last Vital Signs Temp 37.1 C 04/13/20 06:58 Pulse 85 04/13/20 06:58 Resp 16 04/13/20 06:58 BP 103/60 04/13/20 06:58 Pulse Ox 97 04/13/20 06:58 - Abnormal Lab Findings Abnormal Lab Findings: Abnormal Lab Results 04/12/20 Range/Units 11:00 Urine Blood 25 H (NEGATIVE) /ul Urine RBC 5-10 H (0-5) /hpf Ur Epithelial Cells 5-10 H (0-5) /hpf Urine Bacteria 1+ H (NONE) - Exam Constitutional: Present: Alert, Oriented x3, Cooperative, No distress ENT Exam: Present: hearing grossly normal Breasts: Present: Exam deferred Respiratory: Present: lungs clear, no respiratory distress Cardiovascular/Chest: Present: regular rate, rhythm, no edema Abdomen: Present: soft, nontender, no rebound tenderness, other - gravid /Rectal: Present: Exam deferred Extremity: Present: non-tender, no calf tenderness Skin Exam: Present: normal color, warm/dry, no cyanosis Neurologic: Present: alert, normal mood/affect, oriented x 3 Appearance: Present: appropriate appearance Eye contact: Present: cooperative, good eye contact Thoughts: Present: normal thought pattern Assessment/Plan Plan Narrative: Discharge patient to home with follow-up for OB care next week as scheduled. Patient instructed to increase fluid/water intake, avoid smoking, carbonated beverages, or calcium carbonate until we get the stone analysis back. Patient advised that she may notice some blood in her urine and have some dysuria over the next few days. Call for reoccurrence of pain, fever, chills, and or nausea and vomiting. - Problems/Diagnosis (1) Kidney stone complicating Problem: Resolved Qualifiers: Trimester: third trimester Qualified Code(s): O26.833 - related renal disease, third trimester; N20.0 - Calculus of kidney (2) Uncontrolled pain Problem: Resolved (3) Anxiety Problem: Inactive Non Stress Test - Status NST: 04/13/20 Weeks Gestation: 30 3/7 Reason for NST: other - kidney stone on narcotic pain control, threatened labor Monitor Mode: External Acceleration: Present Decelerations: None Variability: Moderate 6-25 bpm Baseline Heart Rate: 140 Activity: reactive Reactive: 10 by 10 - Assessment NST Assessment: other - On narcotic medications to control pain from kidney stone - Plan NST Plan: Reassurance Provided
== END 2020-04-13 09:25 | disposition home or self-care (01) ==
LOC: OB 10:55 → OBCLINIC 10:55
PROVIDERS: ADMIT Obstetrics & Gynecology; ATTEND Obstetrics & Gynecology
DX: R10.32 Left lower quadrant pain; Z3A.30 30 weeks gestation of pregnancy; O99.343 Other mental disorders complicating pregnancy, third trimester; O26.833 Pregnancy related renal disease, third trimester; N20.0 Calculus of kidney; O60.03 Preterm labor without delivery, third trimester; F41.9 Anxiety disorder, unspecified
CPT/HCPCS: 59025; 76770; 81001; 82365; 87081; J2405

== ENCOUNTER 2020-05-27 05:27 | Inpatient (IN) ==
[2020-05-27] MEDS ORDERED: RINGER'S SOLUTION,LACTATED 1,000 ML IV ONE ×2 (09:01→11:09)
[2020-05-27] MEDS ORDERED: OXYTOCIN/DEXTROSE 5%-WATER 30 UNITS/500 ML BAG IV ONE ×3 (09:01→14:48)
[2020-05-27] MEDS ORDERED: ONDANSETRON 4 MG TAB.RAPDIS PO PRN ×2 (09:01→11:09)
[2020-05-27] MEDS ORDERED: BUPIVACAINE HCL/0.9 % NACL/PF 250 ML EP PRN (09:09)
[2020-05-27] MEDS ORDERED: NALOXONE HCL 1 MG/1 ML SYRG IV PRN (09:09)
[2020-05-27] MEDS ORDERED: ONDANSETRON HCL/PF 2 MG/ML VIAL IV PRN (09:09)
[2020-05-27] MEDS ORDERED: fentaNYL CITRATE/PF 50 MCG/ML AMPUL IT SCH (09:15)
[2020-05-27 09:31] LABS: Hematocrit 34.7 % (37.0-47.0); Mean Cell Volume 89.7 fl (78-100); Mean Corpuscular Hgb Conc 34.6 g/dl (32-36); Mean Platelet Volume 10.3 fl (8-12.5); Neutrophil # 12.6 K/mm3 (1.3-6.0); Neutrophil % 80.4 % (42-75.0); Platelet Count 233 K/mm3 (150-450); Red Blood Count 3.87 M/mm3 (4.2-5.4); Red Cell Distribution Width 13.7 % (11.5-14.0); White Blood Count 15.7 K/mm3 (4.0-10.5)
--- NOTE | 2020-05-27 09:34 | ANES ---
Anesthesia Pre Procedure Eval Vitals/Labs: Last Vital Signs Temp 36.7 C 05/27/20 06:12 Pulse 90 05/27/20 06:12 Resp 22 H 05/27/20 06:12 BP 166/108 H 05/27/20 06:12 Pulse Ox 97 05/27/20 06:12 HOME MEDICATIONS RX: Vits96/Iron Fum/Folic [ S] 1 tab PO DAILY 09/30/18 [Last Taken 09/29/18 11:00] acetaminophen 500 mg tablet 500 mg PO Q6H PRN 11/19/19 [Last Taken Unknown] aspirin 81 mg tablet,delayed release 81 mg PO DAILY 12/17/19 [Last Taken Unknown] ferrous sulfate 325 mg (65 mg iron) tablet,delayed release 325 mg PO DAILY #30 tab 03/10/20 [Last Taken Unknown] breast pump See Rx Instructions .ROUTE .MEDSUPPLY #1 ea 04/07/20 [Last Taken Unknown] hydroxyzine HCl 50 mg tablet 50 mg PO Q6H PRN #30 tab 04/07/20 [Last Taken Unknown] docusate sodium 100 mg capsule 100 mg PO DAILY 04/21/20 [Last Taken Unknown] escitalopram oxalate 10 mg tablet 10 mg PO DAILY #30 tab 05/05/20 [Last Taken Unknown] calcium carbonate 500 mg calcium (1,250 mg) tablet 500 mg PO DAILY 05/19/20 [Last Taken Unknown] Allergies/Adverse Reactions: Allergies Allergy/AdvReac Type Severity Reaction Status Date / Time latex Allergy Itching, Verified 05/27/20 05:36 burning tramadol Allergy Itching, Verified 05/27/20 05:36 nausea, vomiting - Planned Procedure Planned Procedure: rule out labor Medication List Reviewed:: Yes Allergies Verified: Yes Medical History (Last Reviewed 05/27/20 @ 09:33 by Lee Acharya CRNA) Anemia (Acute) Onset Date: 03/10/20 w/ Threatened spontaneous (Acute) History of delivery (Chronic) iatrogenic - 35wks, severe preeclampsia. History of pre-eclampsia (Chronic) Anemia Onset Date: 07/31/18 w/ Enlarged pituitary gland Onset Date: 2014 headaches, migraines, no treatment Kidney stone complicating Onset Date: ~04/12/20 Left Migraines Onset Date: Unknown Anxiety History of delivery Onset Date: 10/03/18 @ 35 wks d/t pre-eclampsia w/severe features. [facility] hypertension (Resolved) Preeclampsia (Resolved) Onset Date: ~09/2018 w/severe features. Transfer to [facility]. Smoker (Resolved) counseled. Surgical History (Last Reviewed 05/27/20 @ 09:33 by Lee Acharya CRNA) History of myringotomy x3 History of arthroplasty of right knee Onset Date: 2012 genetic condition [place] teeth extracted Onset Date: ~06/2019 Family History (Last Reviewed 05/27/20 @ 09:33 by Lee Acharya CRNA) Aunt Cancer breast cancer and ovarian cancer Father S/P CABG x 3 Grandfather Heart disease Grandfather Cancer Colon Grandmother Parkinsons disease Diabetes Grandmother Heart disease Mother COPD (chronic obstructive pulmonary disease) Myocardial infarction Arthritis H/O spontaneous , not currently x8 - Family Anesthesia History Family History:: no untoward family reactions to anesthesia, no familial bleeding tendencies, no family history of clotting disorders, no family history of premature - Airway/Neck/Teeth Within Normal Limits:: Yes Teeth Condition: intact Neck Exam: full range of motion Mallampatti Score: 2 - Respiratory Respiratory Physical: lungs clear Sleep Apnea currently treated: No Sleep Apnea by current assessment: No - Cardiovascular Tolerate Activity: Fair Heart Sounds: S1 & S2, Regular - Anesthesia Assessment and Plan ASA Class: PS, II, E Anesthesia Type Plan: Epidural - CSE for labor analgesia
--- NOTE | 2020-05-27 09:56 | ANES ---
Anesthesia Procedure Note Procedure Note: ANESTHESIA PROCEDURE NOTE Date of Procedure: 05/27/2020 Time of procedure: 10:30 AM. Performed by: MEGAN Valdez CRNA, MSN Top Executive: Jihan Olguin RN. Preprocedure diagnosis: Active labor, labor pain. Post procedure diagnosis: Same. Procedure:Epidural for labor analgesia L4-5. Indications: Active labor, labor pain. Findings: See below. Details of the procedure: The patient was placed on the side of the bed in sitting positionand prepped with DuraPrep then draped in a sterile fashion. Lidocaine 1% was infiltrated to the skin and subcutaneous tissues at the level of the L4-5 interspace. An 18-gauge Touhy needle was used to approach the epidural space with loss of resistance technique. Once loss of resistance was achieved a 27-gauge spinal needle was passed through the epidural needle and CSF was contacted. After CSF returned, 20 mcg of fentanyl was injected in the spinal needle was removed the epidural catheter was then threaded approximately 4 cm in the epidural needle was removed. The catheter was taped in place and after careful aspiration 3 mL of 1.5% lidocaine with 1-200,000 epinephrine was injected without change in maternal heart rate or sensorium. . EBL: Minimal. Fluids: N/A. Specimen: N/A. Post procedure condition: The patient tolerated the procedure well with good relief. No complications were noted. Thank you for this consultation. Lee Acharya CRNA, MEGAN, MSN
--- NOTE | 2020-05-27 09:57 | ANES ---
Post Anesthesia Discharge - Transfer of Care Transfer of Care handoff given to nurse: Yes - Discharge from PACU Discharge from PACU when meets criteria: Yes - Comfortable post CSE.
[2020-05-27 10:01] LABS: Albumin * 2.4 gm/dl (3.4-5.0); Anion Gap 13.5 mmol/L (6.8-13.8); BUN/Creatinine Ratio 12.7 (9.0-21.6); Bilirubin, Total 0.2 mg/dL (0.0-1.1); Ca. Corrected For Albumin 9.6 mg/dL (8.4-10.2); Calcium * 8.6 mg/dL (7.9-10.9); Carbon Dioxide 22.2 mmol/L (24-32.6); Potassium 3.7 mmol/L (3.4-4.6); Total Protein 5.9 gm/dL (6.2-8.2)
--- NOTE | 2020-05-27 10:17 | ANES ---
Post Anesthesia Assessment - Vital Signs Vitals: Last Vital Signs Temp 36.7 C 05/27/20 06:12 Pulse 90 05/27/20 06:12 Resp 22 H 05/27/20 06:12 BP 166/108 H 05/27/20 06:12 Pulse Ox 97 05/27/20 06:12 Airway Patency: Normal - Mental Status Level Of Consciousness: Awake, Alert, Appropriate - Pain Level Pain Score: 0 - N/V Assessment Nausea/Vomiting Presence: None Dehydration:: No
--- NOTE | 2020-05-27 12:08 | HP ---
Chief Complaint - Chief Complaint Date of Service: 05/27/20 Time of Service: 12:07 Chief Complaint: painful frequent contractions History of Present Illness: 25 yo at 36 5/7 weeks presents to L&D complaining of increased frequency and intensity of contractions. She denies NOBLES, visual changes, epigastric pain, or increased edema. This complicated by anemia, anxiety, former smoker, kidney stones, and h/o 35wk iatrogenic delivery due to preeclampsia with severe features. Rh positive Rubella immune GBS negative Medical History (Last Reviewed 05/27/20 @ 12:16 by Saúl Mansfield DO) Anemia (Acute) Onset Date: 03/10/20 w/ Threatened spontaneous (Acute) History of delivery (Chronic) iatrogenic - 35wks, severe preeclampsia. History of pre-eclampsia (Chronic) Anemia Onset Date: 07/31/18 w/ Enlarged pituitary gland Onset Date: 2014 headaches, migraines, no treatment Kidney stone complicating Onset Date: ~04/12/20 Left Migraines Onset Date: Unknown Anxiety History of delivery Onset Date: 10/03/18 @ 35 wks d/t pre-eclampsia w/severe features. [facility] hypertension (Resolved) Preeclampsia (Resolved) Onset Date: ~09/2018 w/severe features. Transfer to [facility]. Smoker (Resolved) counseled. 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 Ama teeth extracted Onset Date: ~06/2019 Family History: Family History (Last Reviewed 05/27/20 @ 12:16 by Saúl Mansfield DO) Aunt Cancer breast cancer and ovarian cancer Father S/P CABG x 3 Grandfather Heart disease Grandfather Cancer Colon Grandmother Parkinsons disease Diabetes Grandmother Heart disease Mother COPD (chronic obstructive pulmonary disease) Myocardial infarction Arthritis H/O spontaneous , not currently x8 Social History: (Last Reviewed 05/27/20 @ 12:16 by Saúl Mansfield DO) Social History: adopted: No [place] [facility]: No Marital status: Single household members: significant other, children number of children: 1 current occupational status: unemployed current occupational exposures/hazards: No Highest education level completed: high school graduate Service: No Tobacco: Smoking Status: Former smoker tobacco type: cigarettes Smoking cigarettes per day: 10 Alcohol: alcohol intake: former Substance Use: substance use type: marijuana, former substance user Dietary Habits: caffeine: Yes caffeine comment: 3 per week Type: carbonated beverages, other Pets: pets and animals: cat(s) Exercise: frequency: does not exercise Review Of Systems (GEN) - Review of Systems Generalized/Overall Review: Present: No Symptoms Reported EENTM: Present: No Symptoms Reported Respiratory: Present: No Symptoms Reported Cardiac: Present: No Symptoms Reported Abdominal: Present: Other - contractions Genitourinary: Present: No Symptoms Reported Musculoskeletal: Present: No Symptoms Reported Neurological: Present: No Symptoms Reported Skin: Present: No Symptoms Reported Endocrine: Present: No Symptoms Reported Immunizations: IMMUNIZATION HX Immunizations Up to Date Yes History of Influenza Vaccine No Hx Pneumococcal Vaccination No Allergies/Adverse Reactions: Allergies Allergy/AdvReac Type Severity Reaction Status Date / Time latex Allergy Itching, Verified 05/27/20 05:36 burning tramadol Allergy Itching, Verified 05/27/20 05:36 nausea, vomiting Home Medications: HOME MEDICATIONS RX: Vits96/Iron Fum/Folic [ S] 1 tab PO DAILY 09/30/18 [Last Taken 09/29/18 11:00] acetaminophen 500 mg tablet 500 mg PO Q6H PRN 11/19/19 [Last Taken Unknown] aspirin 81 mg tablet,delayed release 81 mg PO DAILY 12/17/19 [Last Taken Unknown] ferrous sulfate 325 mg (65 mg iron) tablet,delayed release 325 mg PO DAILY #30 tab 03/10/20 [Last Taken Unknown] breast pump See Rx Instructions .ROUTE .MEDSUPPLY #1 ea 04/07/20 [Last Taken Unknown] hydroxyzine HCl 50 mg tablet 50 mg PO Q6H PRN #30 tab 04/07/20 [Last Taken Unknown] docusate sodium 100 mg capsule 100 mg PO DAILY 04/21/20 [Last Taken Unknown] escitalopram oxalate 10 mg tablet 10 mg PO DAILY #30 tab 05/05/20 [Last Taken Unknown] calcium carbonate 500 mg calcium (1,250 mg) tablet 500 mg PO DAILY 05/19/20 [Last Taken Unknown] Exam - Exam Vital Signs: Vital Signs - Last Taken Temp 36.7 C 05/27/20 06:12 Pulse 90 05/27/20 06:12 Resp 22 H 05/27/20 06:12 BP 166/108 H 05/27/20 06:12 Pulse Ox 97 05/27/20 06:12 Constitutional: Present: Alert, Oriented x3, Cooperative, Moderate distress - from contractions ENT Exam: Present: hearing grossly normal Neck: Absent: lymphadenopathy (R), lymphadenopathy (L), thyromegaly Breasts: Present: Exam deferred Respiratory: Present: lungs clear, no respiratory distress Cardiovascular/Chest: Present: regular rate, rhythm, edema - 1+ Abdomen: Present: soft, nontender, no rebound tenderness, other - gravid /Rectal: Present: Other - Cervix 4-5/85/-1 Extremity: Present: no calf tenderness, lower extremity edema - 1+ Skin Exam: Present: normal color, warm/dry, no cyanosis Lymphatic: Present: no adenopathy Neurologic: Present: alert, normal mood/affect, oriented x 3 Appearance: Present: appropriate appearance Eye contact: Present: cooperative, good eye contact Thoughts: Present: normal thought pattern, other - mildly anxious Diagnostic Studies: Abnormal Lab Results 05/27/20 05/27/20 Range/Units 09:27 09:27 WBC 15.7 H (4.0-10.5) K/mm3 RBC 3.87 L (4.2-5.4) M/mm3 Hgb 12.0 L (12.5-16.0) gm/dL Hct 34.7 L (37.0-47.0) % Immature Gran % (Auto) 1.70 H (0.001-0.429) % Immature Gran # (Auto) 0.27 H (0.000-0.0310) K/mm3 Neutrophils % 80.4 H (42-75.0) % Lymphocytes % 10.7 L (20-51) % Neutrophils # 12.6 H (1.3-6.0) K/mm3 Chloride 107 H (97-106) mmol/L Carbon Dioxide 22.2 L (24-32.6) mmol/L Est GFR (Non-Af Amer) 146 H (60-130) mL/min ALT 16 L (19-67) U/L Total Protein 5.9 L (6.2-8.2) gm/dL Albumin 2.4 L (3.4-5.0) gm/dl Laboratory Results WBC 15.7 K/mm3 (4.0-10.5) H 05/27/20 09: RBC 3.87 M/mm3 (4.2-5.4) L 05/27/20 09: Hgb 12.0 gm/dL (12.5-16.0) L 05/27/20 09: Hct 34.7 % (37.0-47.0) L 05/27/20 09: MCV 89.7 fl (78-100) 05/27/20 09: MCH 31.0 pg (27-31) 05/27/20 09: MCHC 34.6 g/dl (32-36) 05/27/20 09: RDW 13.7 % (11.5-14.0) 05/27/20 09: Plt Count 233 K/mm3 (150-450) 05/27/20 09: MPV 10.3 fl (8-12.5) 05/27/20 09: Immature Gran % (Auto) 1.70 % (0.001-0.429) H 05/27/20 09: Immature Gran # (Auto) 0.27 K/mm3 (0.000-0.0310) H 05/27/20 09: Neutrophils % 80.4 % (42-75.0) H 05/27/20 09: Lymphocytes % 10.7 % (20-51) L 05/27/20 09: Monocytes % 5.2 % (0.0-9) 05/27/20 09: Eosinophils % 1.7 % (0.0-3.0) 05/27/20 09: Basophils % 0.3 % (0.0-1.0) 05/27/20 09: Nucleated RBC % 0.0 k/mm3 (0-1) 05/27/20 09: Neutrophils # 12.6 K/mm3 (1.3-6.0) H 05/27/20 09: Lymphocytes # 1.68 k/mm3 (1.5-3.5) 05/27/20 09: Monocytes # 0.8 k/mm3 (0.0-1.0) 05/27/20 09: Eosinophils # 0.3 k/mm3 (0.0-0.7) 05/27/20 09: Absolute Basophils 0.1 k/mm3 (0.0-0.1) 05/27/20 09: Sodium 139 mmol/L (132-142) 05/27/20 09: Plasma Sodium 139 mmol/L (130-142) 05/27/20 09: Potassium 3.7 mmol/L (3.4-4.6) 05/27/20: Chloride 107 mmol/L (97-106) H 05/27/20 09: Carbon Dioxide 22.2 mmol/L (24-32.6) L 05/27/20 09: Anion Gap 13.5 mmol/L (6.8-13.8) 05/27/20: BUN 7 mg/dL (3-23) 05/27/20 09: Creatinine 0.55 mg/dL (0.4-1.4) 05/27/20 09: Est GFR (Non-Af Amer) 146 mL/min (60-130) H 05/27/20 09: BUN/Creatinine Ratio 12.7 (9.0-21.6) 05/27/20 09: Random Glucose 101 mg/dL (70-110) 05/27/20: Calcium 8.6 mg/dL (7.9-10.9) 05/27/20 09: Calcium Adj for Albumin 9.6 mg/dL (8.4-10.2) 05/27/20 09: Total Bilirubin 0.2 mg/dL (0.0-1.1) 05/27/20: AST 15 U/L (0-48) 05/27/20: ALT 16 U/L (19-67) L 05/27/20 09: Alkaline Phosphatase 157 U/L (50-170) 05/27/20 09: Total Protein 5.9 gm/dL (6.2-8.2) L 05/27/20 09: Albumin 2.4 gm/dl (3.4-5.0) L 05/27/20 09:27 Assessment/Plan - Assessment/Plan (1) labor in third trimester Assessment: Admit for management of labor and preeclampsia - monitor closely for s/s of severe features. Epidural PRN. Problem: Acute Qualifiers: labor delivery status: with delivery in third trimester Fetus number: single or unspecified fetus Qualified Code(s): O60.14X0 - labor third trimester with delivery third trimester, not applicable or unspecified (2) Preeclampsia Problem: Acute Qualifiers: Trimester: third trimester Qualified Code(s): O14.93 - Unspecified pre- eclampsia, third trimester (3) Kidney stone complicating Problem: Resolved Qualifiers: Trimester: third trimester Qualified Code(s): O26.833 - related renal disease, third trimester; N20.0 - Calculus of kidney (4) Anemia Problem: Acute Qualifiers: Anemia type: iron deficiency Iron deficiency anemia type: inadequate dietary iron intake Qualified Code(s): D50.8 - Other iron deficiency anemias (5) History of pre-eclampsia Problem: Chronic (6) Anxiety Problem: Inactive
--- NOTE | 2020-05-27 12:13 | PN ---
Progess Note - Interim Date: 05/27/20 Time: 12:08 Narrative: 05/27/20 12:08 Patient comfortable with epidural Vital signs stable. FHT: 140 baseline, reassuring contractions q 2-3 min Cervix: 6/90/-3, AROM-clear Impression: Intrauterine at 36-5/7 weeks labor complicated by preeclampsia without severe features. Plan: Continue expectant management with seizure precautions
[2020-05-27] MEDS ORDERED: SENNOSIDES 8.6 MG TABLET PO PRN (14:48)
[2020-05-27] MEDS ORDERED: IBUPROFEN 800 MG TABLET PO PRN (14:48)
[2020-05-27] MEDS ORDERED: BISACODYL 10 MG SUPP.RECT RC PRN (14:48)
[2020-05-27] MEDS ORDERED: GLYCERIN/WITCH HAZEL LEAF 40 APPL BOX TP PRN (14:48)
[2020-05-27] MEDS ORDERED: BENZOCAINE/MENTHOL 81 SPRAY CAN TP PRN (14:48)
[2020-05-27] MEDS ORDERED: HYDROCORTISONE 30 APPL TUBE TP PRN (14:48)
[2020-05-27] MEDS ORDERED: hydrOXYzine HCL 25 MG TABLET PO PRN (14:49)
--- NOTE | 2020-05-27 14:53 | OR ---
Operative Report - Dictated Report Narrative: Spontaneous vaginal delivery of vigorously crying viable male at 1429 on 05/27/2020 with Apgars 8 and 9, weighing 2699 g in AISHA position. Cord clamping delayed approximately 1 minute Placenta delivered complete, intact, with three vessel cord Estimated blood loss: 100 mL Anesthesia: Epidural Lacerations: None History for MU History for MU Definition: * The number of deliveries resulting in a live the patient experienced prior to current hospitalization * The previous delivery of live twins or any live multiple gestation is considered one live event. *If primagravida or nulliparous is documented select zero for the number of previous live births. Live Events: Live Events: 1
[2020-05-27] MEDS ORDERED: NON-FORMULARY 1 DOSE DOSE (Breast Pump 0 UNIT) TP SCH (15:00)
[2020-05-27] MEDS: IBUPROFEN 800 MG TABLET PO PRN (20:55)
[2020-05-27] MEDS: DOCUSATE SODIUM 100 MG CAPSULE PO SCH (20:56)
[2020-05-27] MEDS: oxyCODONE HCL/ACETAMINOPHEN 1 TAB TABLET PO PRN (20:56)
[2020-05-28] MEDS: oxyCODONE HCL/ACETAMINOPHEN 1 TAB TABLET PO PRN ×2 (00:36→18:46)
[2020-05-28] MEDS ORDERED: CALCIUM CARBONATE 500 MG TAB.CHEW ONE (02:33)
[2020-05-28] MEDS: CALCIUM CARBONATE 500 MG TAB.CHEW PO SCH ×2 (02:36→08:12)
[2020-05-28] MEDS: IBUPROFEN 800 MG TABLET PO PRN ×2 (07:08→17:43)
[2020-05-28] MEDS: PRENATAL VITS96/IRON FUM/FOLIC 1 TAB TABLET PO SCH (08:11)
[2020-05-28] MEDS: ESCITALOPRAM OXALATE 10 MG TAB PO SCH (08:11)
[2020-05-28] MEDS: FERROUS SULFATE 325 MG TABLET PO SCH (08:11)
[2020-05-28] MEDS: DOCUSATE SODIUM 100 MG CAPSULE PO SCH ×2 (08:12→23:37)
[2020-05-28] MEDS ORDERED: DOCUSATE SODIUM 100 MG CAPSULE PO SCH (09:00)
--- NOTE | 2020-05-28 12:44 | PN ---
Subjective - Date and Time Seen Date: 05/28/20 Time: 12:42 Objective - Vitals Vitals: Last Vital Signs Temp 36.4 C 05/28/20 08:19 Pulse 86 05/28/20 08:19 Resp 18 05/28/20 08:19 BP 156/90 H 05/28/20 08:19 Pulse Ox 99 05/28/20 08:19 Patient denies headache, visual changes, or epigastric pain. Lochia wnl abdomen - soft, nontender Uterus -firm, at umbilicus - 1 DTR-2/4, no clonus, no calf tenderness Impression: day #1 - s/p spontaneous 36 5/7-week vaginal delivery. Preeclampsia-mild, resolving Plan: Continue routine care. Continue to monitor blood pressures and watch for signs or symptoms of severe preeclampsia closely. [facility] Physician Documentation - Urinary Catheter Management Urethral ([facility]) Date of Insertion: 05/27/20 Time of Insertion: 10:30 Assessment/Plan - Problems/Diagnosis (1) labor in third trimester Problem: Acute Qualifiers: labor delivery status: with delivery in third trimester Fetus number: single or unspecified fetus Qualified Code(s): O60.14X0 - labor third trimester with delivery third trimester, not applicable or unspecified (2) Preeclampsia Problem: Acute Qualifiers: Trimester: third trimester Qualified Code(s): O14.93 - Unspecified pre- eclampsia, third trimester (3) Kidney stone complicating Problem: Resolved Qualifiers: Trimester: third trimester Qualified Code(s): O26.833 - related renal disease, third trimester; N20.0 - Calculus of kidney (4) Anemia Problem: Acute Qualifiers: Anemia type: iron deficiency Iron deficiency anemia type: inadequate dietary iron intake Qualified Code(s): D50.8 - Other iron deficiency anemias (5) History of pre-eclampsia Problem: Chronic (6) Anxiety Problem: Inactive
[2020-05-29] MEDS: oxyCODONE HCL/ACETAMINOPHEN 1 TAB TABLET PO PRN ×2 (04:01→08:14)
[2020-05-29] MEDS: IBUPROFEN 800 MG TABLET PO PRN (04:02)
[2020-05-29] MEDS: PRENATAL VITS96/IRON FUM/FOLIC 1 TAB TABLET PO SCH (08:14)
[2020-05-29] MEDS: ESCITALOPRAM OXALATE 10 MG TAB PO SCH (08:15)
[2020-05-29] MEDS: FERROUS SULFATE 325 MG TABLET PO SCH (08:15)
[2020-05-29] MEDS: DOCUSATE SODIUM 100 MG CAPSULE PO SCH (08:15)
--- NOTE | 2020-05-29 11:31 | PN ---
Subjective - Date and Time Seen Date: 05/29/20 Time: 11:28 Objective - Vitals Vitals: Last Vital Signs Temp 36.4 C 05/29/20 09:00 Pulse 81 05/29/20 09:00 Resp 18 05/29/20 09:00 BP 165/89 H 05/29/20 11:16 Pulse Ox 98 05/29/20 01:54 Patient denies complaints. Denies headache, visual changes, or epigastric pain. Repeat blood pressure 153/80 lochia wnl abdomen - soft, nontender Uterus -firm, at umbilicus - 2 DTR-2/4, no clonus. No calf tenderness Impression: day #2 - s/p spontaneous vaginal delivery. Preeclampsia- stable. Plan: Routine discharge instructions. Monitor closely for signs or symptoms of severe preeclampsia. Follow-up in 1 week for blood pressure check. [facility] Physician Documentation - Urinary Catheter Management Urethral ([facility]) Date of Insertion: 05/27/20 Time of Insertion: 10:30 Assessment/Plan - Problems/Diagnosis (1) labor in third trimester Problem: Acute Qualifiers: labor delivery status: with delivery in third trimester Fetus number: single or unspecified fetus Qualified Code(s): O60.14X0 - labor third trimester with delivery third trimester, not applicable or unspecified (2) Preeclampsia Problem: Acute Qualifiers: Trimester: third trimester Qualified Code(s): O14.93 - Unspecified pre- eclampsia, third trimester (3) Kidney stone complicating Problem: Resolved Qualifiers: Trimester: third trimester Qualified Code(s): O26.833 - related renal disease, third trimester; N20.0 - Calculus of kidney (4) Anemia Problem: Acute Qualifiers: Anemia type: iron deficiency Iron deficiency anemia type: inadequate dieta ry iron intake Qualified Code(s): D50.8 - Other iron deficiency anemias (5) History of pre-eclampsia Problem: Chronic (6) Anxiety Problem: Inactive
[2020-05-29 11:43] VITALS: BP 153/80
== END 2020-05-29 12:45 | disposition home or self-care (01) | DRG 807 ==
LOC: OBCLINIC 05:27 → OB 09:04
PROVIDERS: ADMIT Obstetrics & Gynecology; ATTEND Obstetrics & Gynecology
CPT/HCPCS: 36415; 59025; 80053; 85025; 88307; 88888